=== PATIENT | male | born 1970 | race Caucasian/White ===

== ENCOUNTER 2017-08-13 14:30 | Emergency (ER) | payer BC ==
[~2017-08-13] VITALS: Ht 185.4 cm; Wt 101.7 kg
[~2017-08-13 14:30] MED LIST: IBUP-103 PO; MELOXICAM PO; RXC5 PO
[2017-08-13 14:35] VITALS: TEMP 36.9; Ht 185.4 cm; Wt 101.7 kg
--- NOTE | 2017-08-13 14:58 | EMERGENCY ROOM VISIT NOTE ---
History Report prepared by Elizabet: Anival Gurrola Under the Supervision of: Dr. Jose Cabrera M.D. First contact with patient: 14:38 Chief Complaint: URINARY SYMPTOMS Stated Complaint: URINATING BLOOD Nursing Triage Summary: triage note: pt reports "i am urinating blood i just noticed it about an hour ago." pt denies any pain. History of Present Illness The patient is a 46 year old male who presents to the Emergency Room with complaints of intermittent hematuria that began an hour ago. The patient states that he went to the bathroom after eating lunch and noticed that his urine was a rust color, which cause him to report to the ED. He reports that the his urine is typically clear and has never been this color in the past. The patient states that when he was a child he had a history of urethral valve issues, which he reports that he had surgery for. He states that following the surgery he has not had any issues. The patient states that he had a tooth extracted 10 days ago and was given Tylenol 3, which he finished five days ago, and Amoxicillin, which he finished yesterday. He reports that he has also been taking Advil for his tooth extraction, which he reports he takes 2 every 4-6 hours. The patient reports that he has been eating and drinking fine. He denies previous similar symptoms, taking blood thinners, abdominal pain, and a history of kidney stones. Source of History: patient Onset: an hour ago Position: other (global) Quality: other (rust colored) Timing: intermittent Associated Symptoms: + urinary symptoms, No abdominal pain Review of Systems See HPI for pertinent positives and negatives. A total of ten systems were reviewed and were otherwise negative. Past Medical & Surgical Medical Problems: (1) Osteoarthritis of left shoulder Surgical Problems: (1) H/O elbow surgery (2) H/O shoulder surgery Family History Hypertension Social History Smoking Status: Never Smoker Smokeless Tobacco Use: No Alcohol Use: occasionally Drug Use: none Marital Status: Housing Status: lives with family Occupation Status: employed Current/Historical Medications Scheduled PRN Ibuprofen Tab (Advil), 400 MG PO UD PRN for Pain or Fever Allergies Coded Allergies: No Known Allergies (Unverified , 02/13/16) Physical Exam Vital Signs Date Time Temp Pulse Resp B/P (MAP) Pulse Ox O2 Delivery O2 Flow Rate FiO2 08/13/17 17:29 68 18 139/95 100 Room Air 12/16/17 16:47 74 142/94 97 Room Air 08/13/17 14:35 36.9 88 18 172/120 97 Room Air Physical Exam GENERAL: Awake, alert, well-appearing, in no distress HENT: Normocephalic, atraumatic. Oropharynx unremarkable. EYES: Normal conjunctiva. Sclera non-icteric. NECK: Supple. No nuchal rigidity. FROM. No JVD. RESPIRATORY: Clear to auscultation. CARDIAC: Regular rate, normal rhythm. Extremities warm and well perfused. Pulses equal. ABDOMEN: Soft, non-distended. No tenderness to palpation. No rebound or guarding. No masses. RECTAL: Deferred. MUSCULOSKELETAL: Chest examination reveals no tenderness. The back is symmetrical on inspection without obvious abnormality. There is no CVA tenderness to palpation. No joint edema. LOWER EXTREMITIES: Calves are equal size bilaterally and non-tender. No edema. No discoloration. NEURO: Normal sensorium. No sensory or motor deficits noted. SKIN: No rash or jaundice noted. Medical Decision & Procedures ER Provider Diagnostic Interpretation: Radiology results as stated below per my review and radiologist interpretation ABDOMEN AND PELVIS CT WITH IV CONTRAST CT DOSE: 755.04 mGy.cm HISTORY: hematuria TECHNIQUE: Multiaxial CT images of the abdomen and pelvis were performed following the use of intravenous contrast. A dose lowering technique was utilized adhering to the principles of ALARA. COMPARISON STUDY: None. FINDINGS: The lung bases are essentially clear. No pneumoperitoneum. No pneumatosis. No fractures within the visualized osseous structures. The liver, spleen, adrenal glands, pancreas, and gallbladder are unremarkable. No retroperitoneal lymphadenopathy. No bowel wall thickening or obstruction. Normal appendix. Mild bladder wall thickening. There are 2 stones seen within the lower pole the right kidney with the largest measuring 8 mm. Multiple stones within the left kidney with the largest measuring 7 mm. Focal cortical scarring within the kidneys. There is mild bilateral hydronephrosis. There is also dilatation of the mid to distal ureters. This is most pronounced on the left where the distal left ureter measures up to 2.3 cm in diameter. There is a punctate calcification within the distended distal left ureter on image 431. This appears to be nonobstructing. There may be a small diverticulum within the distal left ureter measuring 8 mm. This is best seen on image 426. Prostate gland measures 3.4 cm. No right ureteral calculi. IMPRESSION: 1. Mild bilateral hydronephrosis with moderate to severe dilatation of the mid to distal bilateral ureters as described above. The ureters are distended to the level of the ureterovesical junctions. There is a 2 mm nonobstructing stone within the distal left ureter. No obstructing right ureteral calculi. Therefore, the hydronephrosis is not clearly explained on this study and could be a result of bilateral megaureters. Chronic bladder outlet obstruction could result in this appearance but is considered less likely. However, the bladder is not significantly distended and the prostate is normal in size. Follow-up nonemergent urology consultation is recommended. 2. Mild bladder wall thickening which is nonspecific. 3. Bilateral nephrolithiasis. 4. No bowel wall thickening or obstruction. 5. Possible small diverticulum within the distal left ureter. Electronically signed by: José Miguel Ramon M.D. 08/13/2017 4:53 PM Dictated Date/Time: 08/13/2017 4:41 PM Laboratory Results 08/13/17 15:15 Red Blood Count 5.64, Mean Corpuscular Volume 84.2, Mean Corpuscular Hemoglobin 28.2, Mean Corpuscular Hemoglobin Concent 33.5, Mean Platelet Volume 10.7, Neutrophils (%) (Auto) 73.7, Lymphocytes (%) (Auto) 16.2, Monocytes (%) (Auto) 9.0, Eosinophils (%) (Auto) 0.7, Basophils (%) (Auto) 0.2, Neutrophils # (Auto) 6.05, Lymphocytes # (Auto) 1.33, Monocytes # (Auto) 0.74, Eosinophils # (Auto) 0.06, Basophils # (Auto) 0.02 08/13/17 15:15 Test 08/13/17 15:05 08/13/17 15:15 Urine Color ORANGE Urine Appearance CLOUDY (CLEAR) Urine pH 6.0 (4.5-7.5) Urine Specific [place] 1.018 (1.000-1.030) Urine Protein TRACE (NEG) Urine Glucose (UA) NEG (NEG) Urine Ketones NEG (NEG) Urine Occult Blood 3+ (NEG) Urine Nitrite NEG (NEG) Urine Bilirubin NEG (NEG) Urine Urobilinogen NEG (NEG) Urine Leukocyte Esterase SMALL (NEG) Urine WBC (Auto) 1-5 /hpf (0-5) Urine RBC (Auto) >30 /hpf (0-4) Urine Hyaline Casts (Auto) 1-5 /lpf (0-5) Urine Epithelial Cells (Auto) 5-10 /lpf (0-5) Urine Bacteria (Auto) NEG (NEG) White Blood Count 8.22 K/uL (4.8-10.8) Red Blood Count 5.64 M/uL (4.7-6.1) Hemoglobin 15.9 g/dL (14.0-18.0) Hematocrit 47.5 % (42-52) Mean Corpuscular Volume 84.2 fL (80-100) Mean Corpuscular Hemoglobin 28.2 pg (25-34) Mean Corpuscular Hemoglobin Concent 33.5 g/dl (32-36) Platelet Count 219 K/uL (130-400) Mean Platelet Volume 10.7 fL (7.4-10.4) Neutrophils (%) (Auto) 73.7 % Lymphocytes (%) (Auto) 16.2 % Monocytes (%) (Auto) 9.0 % Eosinophils (%) (Auto) 0.7 % Basophils (%) (Auto) 0.2 % Neutrophils # (Auto) 6.05 K/uL (1.4-6.5) Lymphocytes # (Auto) 1.33 K/uL (1.2-3.4) Monocytes # (Auto) 0.74 K/uL (0.11-0.59) Eosinophils # (Auto) 0.06 K/uL (0-0.5) Basophils # (Auto) 0.02 K/uL (0-0.2) RDW Standard Deviation 41.4 fL (36.4-46.3) RDW Coefficient of Variation 13.5 % (11.5-14.5) Immature Granulocyte % (Auto) 0.2 % Immature Granulocyte # (Auto) 0.02 K/uL (0.00-0.02) Anion Gap 4.0 mmol/L (3-11) Est Creatinine Clear Calc Drug Dose 114.5 ml/min Estimated GFR () 102.9 Estimated GFR (Non- 88.8 BUN/Creatinine Ratio 10.9 (10-20) Calcium Level 9.3 mg/dl (8.5-10.1) Total Bilirubin 0.5 mg/dl (0.2-1) Direct Bilirubin 0.1 mg/dl (0-0.2) Aspartate Amino Transf (AST/SGOT) 19 U/L (15-37) Alanine Aminotransferase (ALT/SGPT) 33 U/L (12-78) Alkaline Phosphatase 73 U/L (45-117) Total Protein 7.6 gm/dl (6.4-8.2) Albumin 4.5 gm/dl (3.4-5.0) Lipase 167 U/L (73-393) Laboratory results reviewed by me Medications Administered Medications (Trade) Dose Ordered Sig/Álvaro Route Start Time Stop Time Status Last Admin Dose Admin Sodium Chloride 1,000 ml @ 999 mls/hr Q1H1M STAT IV 08/13/17 16:40 08/13/17 17:40 DC 08/13/17 17:00 999 MLS/HR ED Course 1450: The patient was evaluated in room B08. A complete history and physical exam was performed. 1548: I reevaluated the patient and he is resting comfortably. 1707: I reevaluated the patient. Discussed results and discharge instructions: He verbalized understanding and agreement. The patient is ready for discharge. Medical Decision I reviewed the patient's past medical history, medications, and the nursing notes as described above. The patient's presentation and history were concerning for Dehydration, electrolyte abnormality, renal failure, UTI, pyelonephritis, urinary stone. The patient is a 46-year-old gentleman who presents emergency Department with hematuria that started today per history of present illness. Arrival the patient is well-appearing, in no acute distress, afebrile with stable vital signs. UA demonstrates gross hematuria. Labs unremarkable otherwise with WBC and creatinine within normal limits. CT scan demonstrates a 2 mm nonobstructing left ureteral stone. Of note the patient was found to have bilateral hydro-nephrosis, given the patients history of childhood urethral stenosis may be residual findings from that. Denies any urinary retention currently therefore this finding is likely incidental. The patient follow-up with his PCP for possible urology referral. Findings and plan for follow-up reviewed with patient. Patient agreeable and d/c'd per discharge instructions. Medication Reconcilliation Current Medication List: was personally reviewed by me Blood Pressure Screening Patient's blood pressure: Elevated blood pressure Blood pressure disposition: Referred to PCP Impression Primary Impression: Ureteral stone Additional Impressions: Hematuria Bilateral hydronephrosis Scribe Attestation The scribe's documentation has been prepared under my direction and personally reviewed by me in its entirety. I confirm that the note above accurately reflects all work, treatment, procedures, and medical decision making performed by me. Departure Information Dispostion Home / Self-Care Referrals Roly Barry D.O. (PCP) Forms HOME CARE DOCUMENTATION FORM, IMPORTANT VISIT INFORMATION Patient Instructions ED Hematuria, ED Stone Kidney Undescended No Sx, My [facility] Additional Instructions Please follow up with your primary care physician in the next week for re- evaluation and possible urology referral for your CT scan findings. You were found to have a non-obstructing ureteral stone. You were also found to have bilateral hydronephrosis, which may be due to your prior history of childhood urethral abnormalities. Otherwise, your exam, CT scan, and lab results did not show signs of an emergent condition at this time. Return to the emergency department for worsening symptoms as described in the accompanying instructions. ABDOMEN AND PELVIS CT WITH IV CONTRAST CT DOSE: 755.04 mGy.cm HISTORY: hematuria TECHNIQUE: Multiaxial CT images of the abdomen and pelvis were performed following the use of intravenous contrast. A dose lowering technique was utilized adhering to the principles of ALARA. COMPARISON STUDY: None. FINDINGS: The lung bases are essentially clear. No pneumoperitoneum. No pneumatosis. No fractures within the visualized osseous structures. The liver, spleen, adrenal glands, pancreas, and gallbladder are unremarkable. No retroperitoneal lymphadenopathy. No bowel wall thickening or obstruction. Normal appendix. Mild bladder wall thickening. There are 2 stones seen within the lower pole the right kidney with the largest measuring 8 mm. Multiple stones within the left kidney with the largest measuring 7 mm. Focal cortical scarring within the kidneys. There is mild bilateral hydronephrosis. There is also dilatation of the mid to distal ureters. This is most pronounced on the left where the distal left ureter measures up to 2.3 cm in diameter. There is a punctate calcification within the distended distal left ureter on image 431. This appears to be nonobstructing. There may be a small diverticulum within the distal left ureter measuring 8 mm. This is best seen on image 426. Prostate gland measures 3.4 cm. No right ureteral calculi. IMPRESSION: 1. Mild bilateral hydronephrosis with moderate to severe dilatation of the mid to distal bilateral ureters as described above. The ureters are distended to the level of the ureterovesical junctions. There is a 2 mm nonobstructing stone within the distal left ureter. No obstructing right ureteral calculi. Therefore, the hydronephrosis is not clearly explained on this study and could be a result of bilateral megaureters. Chronic bladder outlet obstruction could result in this appearance but is considered less likely. However, the bladder is not significantly distended and the prostate is normal in size. Follow-up nonemergent urology consultation is recommended. 2. Mild bladder wall thickening which is nonspecific. 3. Bilateral nephrolithiasis. 4. No bowel wall thickening or obstruction. 5. Possible small diverticulum within the distal left ureter. Problem Qualifiers
[2017-08-13 15:30] LABS: URINE APPEARANCE CLOUDY (CLEAR); URINE BILIRUBIN NEG (NEG); URINE COLOR ORANGE; URINE NITRITE NEG (NEG); URINE SPECIFIC GRAVITY 1.018 (1.000-1.030); UROBILINOGEN NEG (NEG); ZZUR CULT IF INDIC CLEAN CATCH NO
[2017-08-13 15:31] LABS: BASO % 0.2 %; BASO ABS # 0.02 K/uL (0-0.2); COMPLETE YES; EOS % 0.7 %; HEMATOCRIT 47.5 % (42-52); IG% 0.2 %; LYMPH % 16.2 %; LYMPH ABS # 1.33 K/uL (1.2-3.4); MEAN CELL VOLUME 84.2 fL (80-100); MEAN CORPUSCULAR HEMOGLOBIN 28.2 pg (25-34); MEAN CORPUSCULAR HGB CONC 33.5 g/dl (32-36); MEAN PLATELET VOLUME 10.7 fL (7.4-10.4); NEUT % 73.7 %; PLATELET COUNT 219 K/uL (130-400); RED BLOOD COUNT 5.64 M/uL (4.7-6.1); WHITE BLOOD COUNT 8.22 K/uL (4.8-10.8)
[2017-08-13 15:35] LABS: MANUAL MICROSCOPIC REQUIRED? NO; REVIEW REQ? NO
[2017-08-13 15:47] LABS: BUN/CREATININE RATIO 10.9 (10-20); CALCIUM 9.3 mg/dl (8.5-10.1); CREATININE 1.01 mg/dl (0.60-1.40); POTASSIUM 3.8 mmol/L (3.5-5.1)
[2017-08-13] MEDS ORDERED: OPTIRAY 320 IV PRN (16:15)
[2017-08-13] MEDS ORDERED: SODIUM CHLORIDE 0.9% 1000ML 1,000 ML IV STA (16:40)
--- NOTE | 2017-08-13 16:54 | DIAGNOSTIC IMAGING REPORT ---
ABDOMEN AND PELVIS CT WITH IV CONTRAST CT DOSE: 755.04 mGy.cm HISTORY: hematuria TECHNIQUE: Multiaxial CT images of the abdomen and pelvis were performed following the use of intravenous contrast. A dose lowering technique was utilized adhering to the principles of ALARA. COMPARISON STUDY: None. FINDINGS: The lung bases are essentially clear. No pneumoperitoneum. No pneumatosis. No fractures within the visualized osseous structures. The liver, spleen, adrenal glands, pancreas, and gallbladder are unremarkable. No retroperitoneal lymphadenopathy. No bowel wall thickening or obstruction. Normal appendix. Mild bladder wall thickening. There are 2 stones seen within the lower pole the right kidney with the largest measuring 8 mm. Multiple stones within the left kidney with the largest measuring 7 mm. Focal cortical scarring within the kidneys. There is mild bilateral hydronephrosis. There is also dilatation of the mid to distal ureters. This is most pronounced on the left where the distal left ureter measures up to 2.3 cm in diameter. There is a punctate calcification within the distended distal left ureter on image 431. This appears to be nonobstructing. There may be a small diverticulum within the distal left ureter measuring 8 mm. This is best seen on image 426. Prostate gland measures 3.4 cm. No right ureteral calculi. IMPRESSION: 1. Mild bilateral hydronephrosis with moderate to severe dilatation of the mid to distal bilateral ureters as described above. The ureters are distended to the level of the ureterovesical junctions. There is a 2 mm nonobstructing stone within the distal left ureter. No obstructing right ureteral calculi. Therefore, the hydronephrosis is not clearly explained on this study and could be a result of bilateral megaureters. Chronic bladder outlet obstruction could result in this appearance but is considered less likely. However, the bladder is not significantly distended and the prostate is normal in size. Follow-up nonemergent urology consultation is recommended. 2. Mild bladder wall thickening which is nonspecific. 3. Bilateral nephrolithiasis. 4. No bowel wall thickening or obstruction. 5. Possible small diverticulum within the distal left ureter. Electronically signed by: José Miguel Ramon M.D. 08/13/2017 4:53 PM Dictated Date/Time: 08/13/2017 4:41 PM
[2017-08-13 17:29] VITALS: BP 139/95; PULSE 68; O2SAT 100
== END 2017-08-13 17:46 | disposition home or self-care (01) ==
LOC: C.EDB 14:31
DX: N13.1 Hydronephrosis with ureteral stricture, not elsewhere classified (principal); R31.9 Hematuria, unspecified; Z98.818 Other dental procedure status; Z98.890 Other specified postprocedural states; Z82.49 Family history of ischemic heart disease and other diseases of the circulatory system

== ENCOUNTER 2024-09-28 08:04 | Observation (INO) ==
--- NOTE | 2024-08-23 13:38 | PAT Medication Instructions ---
Medication Instructions Date of Service August 23, 2024 Home Medications celecoxib 100 mg capsule (Celebrex) 100 mg PO QDL cyanocobalamin (vitamin B-12) 500 mcg tablet (Vitamin B-12) 500 mcg PO QDL [id number] C-Mn 500 mg-400 mg capsule 1 cap PO QDL hydrochlorothiazide 25 mg tablet 25 mg PO QDL lisinopril 10 mg tablet 10 mg PO QDL magnesium oxide 800 mg PO QDL rosuvastatin 10 mg tablet 10 mg PO QDL turmeric root extract 500 mg capsule 2,000 mg PO QDL ASK your surgeon for instructions celecoxib 100 mg capsule (Celebrex) 100 mg PO QDL STOP taking 2 weeks before surgery (or as soon as possible if surgery is within 2 weeks) [id number] C-Mn 500 mg-400 mg capsule 1 cap PO QDL turmeric root extract 500 mg capsule 2,000 mg PO QDL DO NOT take the morning of surgery cyanocobalamin (vitamin B-12) 500 mcg tablet (Vitamin B-12) 500 mcg PO QDL hydrochlorothiazide 25 mg tablet 25 mg PO QDL lisinopril 10 mg tablet 10 mg PO QDL magnesium oxide 800 mg PO QDL Take morning of surgery With a small sip of water, OTHERWISE NOTHING TO EAT OR DRINK AFTER MIDNIGHT: rosuvastatin 10 mg tablet 10 mg PO QDL Other Notes If you have any questions please call us at [phone] or [phone] or [phone] or [phone]
--- NOTE | 2024-09-04 11:15 | Anesthesiology Consultation ---
Date of Service September 04, 2024 Assessment & Plan (1) Encounter for pre-operative examination: Infectious disease screening: Per assessment on 09/04/24- No known recent infectious disease contacts or current infectious disease symptoms. Chart Review Chart Review: Acceptable Risk for Surgery and Patient seen in Pre Admission Testing Teaching & Discussion Pre-Anesthesia Teaching/Discussion Notes: Instructed NPO after midnight before surgery,except medications with 15 cc of water. Medication instructions provided according to the PAT guidelines. History Surgery Operation Date: 09/28/24 08:00 Proposed Procedures p Revision Left Shoulder Hemiarthroplasty to Left Anatomic Total Shoulder Arthroplasty versus Left Reverse Total Shoulder Arthroplasty - Harlan Rubio, DO Height/Weight Height: 6 ft 1 in Weight: 115 kg Allergies Allergy/AdvReac Type Severity Reaction Status Date / Time atorvastatin AdvReac Severe Muscle/joint Verified 08/30/24 11:56 pain Medications Home Medications Medication Instructions Recorded Confirmed Last Taken celecoxib 100 mg capsule (Celebrex) 100 mg PO QDL 08/20/24 08/20/24 Unknown cyanocobalamin (vitamin B-12) 500 500 mcg PO QDL 08/20/24 08/20/24 Unknown mcg tablet (Vitamin B-12) [id number] C-Mn 500 1 cap PO QDL 08/20/24 08/20/24 Unknown mg-400 mg capsule hydrochlorothiazide 25 mg tablet 25 mg PO QDL 08/20/24 08/20/24 Unknown lisinopril 10 mg tablet 10 mg PO QDL 08/20/24 08/20/24 Unknown magnesium oxide 800 mg PO QDL 08/20/24 08/20/24 Unknown rosuvastatin 10 mg tablet 10 mg PO QDL 08/20/24 08/20/24 Unknown turmeric root extract 500 mg 2,000 mg PO QDL 08/20/24 08/20/24 Unknown capsule Past Medical History Medical History History of kidney stones Passed on his own - no surgical intervention Hx of sciatica Hyperlipidemia Hypertension Osteoarthritis Exercise / Class Metabolic Activity II 4-5 Yardwork/Stairs/Walk up hill (one FS: No CP, no SOB) Past Family History Family History Other No family history of adverse response to anesthesia Past Surgical History Surgical History History of colonoscopy Hx of elbow surgery R/L "tennis elbow repair" S/P carpal tunnel release right wrist S/P right knee arthroscopy Status post left shoulder hemiarthroplasty Past Anesthesia History No Hx of Anesthesia Complications and No Family Hx of Anesthesia Complications History of PONV No Hx of PONV and No Hx of Motion Sickness Social History Smoking Status: Never smoker Do You Dip or Chew Tobacco: No Hx Alcohol Use: Yes Alcohol type: wine and hard liquor alcohol intake frequency: a few times a week Hx Substance Use: No substance use type: does not use Review of Systems Patient denies chest pain, shortness of breath, dyspnea on exertion, fever, chills, cough, wheezing, palpitations. Physical Exam Vital Signs BP 114/76 P 76 TEMP 98.0 SP02 95%RA RESP 16 Physical Full cervical extension range of motion. Full TMJ range of motion. TMD > 3.5 finger breaths Mallampati Score II Dentition: missing molars, + implant (molar), + cap (molar) Lungs: clear throughout to auscultation Cardiac: regular rate and rhythm, no murmurs noted Spine: normal Carotid arteries: negative bruit Extremities: no LE edema Lab Results Anesthesia Preop Results Results Anesthesia Widget: WBC 6.21 K/ul (4.8-10.8) 09/04/24 Hgb 16.4 g/dl (14.0-18.0) 09/04/24 Hct 48.5 % (42.0-52.0) 09/04/24 Plt 211 K/uL (130-400) 09/04/24 Na 136 mmol/L (136-145) 09/04/24 K 4.2 mmol/L (3.5-5.1) 09/04/24 Cl 99 mmol/L (98-107) 09/04/24 CO2 31 mmol/L (21-32) 09/04/24 BUN 17 mg/dl (6-23) 09/04/24 Creat 1.10 mg/dl (0.6-1.4) 09/04/24 Glucose Level 98 mg/dl (70-99(Fasting)) 09/04/24 PT 10.5 Seconds (9.0-12.0) 09/04/24 PTT 28 Seconds (21-31) 09/04/24 INR 1.0 (0.9-1.1) 09/04/24 Blood Type O Positive 09/04/24 Antibody Screen NEGATIVE 09/04/24 Testing Electrocardiogram Date: 09/04/24 Findings: + NSR @ (68) Chest X-Ray Date: 09/04/24 FINDINGS: Heart size and pulmonary vasculature are normal. No effusion or consolidation. IMPRESSION: No acute findings.
[~2024-09-28 08:04] MED LIST changes: +BUPIVACAINE 0.5 % 5 MG/1 ML PF 10ML VIAL ONE; -IBUP-103 PO; -MELOXICAM PO; -RXC5 PO
[2024-09-28] MEDS ORDERED: fentaNYL citrate PF 100 MCG/2 ML VIAL ONE (08:27)
[2024-09-28] MEDS ORDERED: MIDAZOLAM HCL 1 MG/ML 2ML VIAL ONE (08:27)
[2024-09-28] MEDS ORDERED: PROPOFOL IV EMULSION 10 MG/ML 20 ML VIAL IV ONE (08:29)
[2024-09-28] MEDS ORDERED: ROCURONIUM BROMIDE 10 MG/ML 5 ML VIAL IV ONE (08:29)
[2024-09-28] MEDS ORDERED: ONDANSETRON INJ 2 MG/ML 2 ML VIAL ONE (08:29)
[2024-09-28] MEDS ORDERED: ATROPINE SULFATE 0.1 MG/ML 10ML SYR IV PRN (08:57)
[2024-09-28] MEDS ORDERED: ePHEDrine sulfate 50 MG/ML AMP IV PRN (08:57)
[2024-09-28] MEDS ORDERED: HYDROmorphone INJ 1 MG/ML SYRINGE IV PRN (08:57)
[2024-09-28] MEDS: LR 15ML/HR IV SCH (09:12)
[2024-09-28] MEDS: ACETAMINOPHEN 500 MG TAB PO SCH ×2 (09:12→14:51)
[2024-09-28] MEDS: FAMOTIDINE 20 MG TAB PO SCH (09:13)
[2024-09-28] MEDS: GABAPENTIN 900 MG DOSE PO SCH (09:13)
[2024-09-28] MEDS: LR 60ML/HR IV SCH (09:13)
[2024-09-28] MEDS: dexAMETHasone**PF** 10 MG/ML VIAL IV SCH (09:13)
[2024-09-28] MEDS: TRANEXAMIC ACID 1,000 MG **IV Pre-op IV SCH (09:44)
--- NOTE | 2024-09-28 10:00 | History & Physical Bridge Note ---
Date of Service September 28, 2024 History & Physical Bridge Note I have examined the patient, reviewed the History & Physical and in the interval since the performance of the History & Physical I have noted the following changes of clinical significance: no changes noted
[2024-09-28] MEDS: ceFAZolin 2000MG 2,000 MG/15 ML SYR IV SCH (10:03)
[2024-09-28] MEDS: ROPIV 0.5% 246mg, Ketorolac 30mg, EPINEPHrine 0.5mg in NSS INFIL SCH (10:53)
[2024-09-28] MEDS: ORTHO JOINT ANESTHETIC ONE (10:54)
[2024-09-28] MEDS ORDERED: SUGAMMADEX SODIUM 200 MG/2 ML VIAL IV ONE (11:08)
[2024-09-28] MEDS: TRANEXAMIC ACID 1,000 MG **IV Intra-op IV SCH (11:42)
[2024-09-28] MEDS: fentaNYL citrate PF 100 MCG/2 ML VIAL IV PRN (12:24)
[2024-09-28] MEDS: ONDANSETRON INJ 2 MG/ML 2 ML VIAL IV PRN (12:25)
[2024-09-28] MEDS: PROMETHAZINE HCL 6.25 MG in SODIUM CHLORIDE 0.9% 50 ML IV PRN (12:52)
--- NOTE | 2024-09-28 13:07 | Operative Report ---
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 He was seen in the preoperative holding area and the operative extremity identified and signed. He was given a preoperative antibiotic and a left interscalene nerve block. He was taken back the operating room and laid on table in supine position. He was put under general anesthesia. He was put into the beachchair position. The left shoulder was prepped and draped sterile fashion. A timeout was done. The patient and the operative extremity was properly identified. The previous deltopectoral incision was opened back up. Dissection was taken down through the fascia. The deltoid was retracted laterally and the conjoin tendon and was retracted medially. The subscapularis was identified and intact. The subscapularis was then released off the lesser tuberosity. The humerus was then exposed. The humeral head was then removed. The rotator cuff was intact. The stem appeared to be in good alignment. At this point I decided to converted to a total shoulder arthroplasty. The glenoid was exposed. Time was spent doing a circumferential capsular labral release around the glenoid. A size 4 sizing guide was then placed on the glenoid. A guidepin was placed in the middle of the glenoid vault. The glenoid was then reamed. A central boss was then drilled followed by 3 peripheral peg holes. A size 4 glenoid was then cemented into place. Once cement had hardened, the proximal humerus was exposed. A size 46 x 18 eccentric humeral head was impacted into place. The shoulder was reduced. The shoulder was brought through full range of motion and felt to be stable. The surrounding soft tissues were injected with the 100 cc of an orthopedic pain control cocktail. The subscapularis was then tenodesed back to the lesser tuberosity with Arthrex suture anchors. I was able to get a speed bridge repair. The rotator interval was then closed with a fiber tape. The shoulder was brought through full range of motion and felt to be stable. The axillary nerve was palpated. The deltopectoral interval was then closed with 2-0 Vicryl suture. Skin was closed with 3-0 Vicryl and marv. He was then placed in a Silverlon dressing. He was then extubated and transferred to a hospital bed. He was taken to the postanesthesia care unit in stable condition. He tolerated the procedure well. Gray Begum PA-C, was present for the entire procedure. He was critical for patient positioning, prepping, draping, retraction exposure, wound closure and application of sterile dressing. I attest to the content of the Intraoperative Record and any orders documented therein. Any exceptions are noted below.
[2024-09-28] MEDS ORDERED: HYDROmorphone INJ 0.5 MG/0.5 ML SYR IV PRN (13:08)
[2024-09-28] MEDS ORDERED: NALOXONE HCL 0.4 MG/1 ML VIAL/CARP IV PRN (13:08)
[2024-09-28] MEDS ORDERED: MAGNESIUM HYDROXIDE SUSP 30 ML UDC PO PRN (13:08)
[2024-09-28] MEDS ORDERED: bisacodyL 10 MG SUPP PR PRN (13:08)
[2024-09-28] MEDS ORDERED: ONDANSETRON INJ 2 MG/ML 2 ML VIAL IV PRN (13:08)
[2024-09-28] MEDS ORDERED: METOCLOPRAMIDE HCL INJ 5 MG/ML 2 ML VIAL IV PRN (13:08)
--- NOTE | 2024-09-28 13:21 | XRay Report ---
XR shoulder LT min 2V routine CLINICAL HISTORY: Post shoulder surgery COMPARISON: None FINDINGS: 2 views of left shoulder demonstrate satisfactory positioning and alignment of the arthrop lasty components. There is discoid atelectasis in the left lung base. IMPRESSION: As above ACT 112: Negative or not required by law. Electronically signed by: Ema Rodarte M.D. 09/28/2024 1:19 PM
[2024-09-28] MEDS: BUPIVACAINE LIPOSOME 1.3% 133 MG/10 ML VIAL ONE (14:22)
[2024-09-28] MEDS: PROMETHAZINE HCL INJ 25 MG/ML 1 ML VIAL ONE (14:23)
[2024-09-28] MEDS: SODIUM CHLORIDE 0.9% 50 ML BAG ONE (14:23)
--- NOTE | 2024-09-28 14:39 | Anesthesiology Progress Note ---
Date of Service September 28, 2024 Anesthesia Post Procedure Vital Signs Vital Signs: Temp Pulse Pulse Resp BP Pulse Ox O2 Del Method 09/28/24 14:00 36.7 C 86 20 125/81 93 Nasal Cannula 09/28/24 13:38 36.8 C 83 20 124/72 94 Nasal Cannula 09/28/24 13:30 79 19 125/77 94 Nasal Cannula 09/28/24 13:20 82 18 118/75 93 Nasal Cannula 09/28/24 13:10 78 18 129/86 94 Nasal Cannula 09/28/24 13:00 36.5 C 70 20 127/80 94 Nasal Cannula 09/28/24 12:50 73 22 126/82 95 Nasal Cannula 09/28/24 12:40 72 18 127/82 95 Nasal Cannula 09/28/24 12:30 78 22 135/85 95 Nasal Cannula 09/28/24 12:20 77 18 147/95 H 94 Nasal Cannula 09/28/24 12:10 35.5 C L 77 20 148/89 H 92 Room Air 09/28/24 08:45 36.6 C 81 20 150/96 H 96 Room Air O2 Flow Rate 09/28/24 14:00 2 09/28/24 13:38 2 09/28/24 13:30 3 09/28/24 13:20 3 09/28/24 13:10 3 09/28/24 13:00 4 09/28/24 12:50 4 09/28/24 12:40 4 09/28/24 12:30 4 09/28/24 12:20 4 09/28/24 12:10 09/28/24 08:45 Pain Intensity Left Shoulder: Pain Intensity: 3 Transfer of Care Handoff Completed per policy Notes Mental Status: alert / awake / arousable and participated in evaluation Patient Amnestic to Procedure: Yes Nausea / Vomiting: adequately controlled Pain: adequately controlled Airway Patency, RR, SpO2: stable & adequate BP & HR: stable & adequate Hydration State: stable & adequate Anesthetic Complications: no major complications apparent and Pt Satisfied with anesthetic care
[2024-09-28] MEDS: KETOROLAC TROMETHAMINE 15 MG/ML VIAL IV SCH (14:52)
[2024-09-28] MEDS: ceFAZolin 1000MG 1,000 MG/7.5 ML SYR IV SCH (20:13)
[2024-09-28] MEDS: SENNA 8.6 MG TAB PO SCH (20:13)
[2024-09-28] MEDS: DOCUSATE SODIUM 100 MG CAP PO SCH (20:13)
--- NOTE | 2024-09-29 07:28 | Orthopedic Progress Note ---
Date of Service September 29, 2024 Assessment & Plan (1) Status post replacement of left shoulder joint: Overall he is doing very well. He is not having much pain in the left shoulder. He will be seen by physical therapy today for ambulation and range of motion exercises. He is to be in the sling for 6 weeks. He can be discharged to home later today. He will follow-up with orthopedics in 2 weeks. Katelyn Saravia was seen and examined on bedside this morning. Overall is doing very well. He is not having much pain in the left shoulder. He has been up and ambulating to the bathroom. Has no complaints.. Review of Systems All systems reviewed & are unremarkable except as noted in HPI & below. Physical Exam On physical examination of the left shoulder, the dressing is clean and dry. He has active motion of his hand and his wrist. He is wearing his sling as instructed.. Results & Data Results & Data Laboratory Results . Diagnostic Findings Postoperative x-rays of the left shoulder show the prosthesis to be in anatomic alignment without any evidence of fracture complication, or loosening.. PG Care Time/CCT Total # of Minutes Spent Total Time Spent with Patient: Total time spent is greater than 50% in coordination of care (as documented) at patient's floor/unit and/or counseling patient: Coding Level of Care Code 77666 Post Operative Follow-Up Diagnoses Status post replacement of left shoulder joint Z96.612
--- NOTE | 2024-09-29 07:29 | Discharge Summary ---
Date of Service September 29, 2024 Principal Diagnosis Same as "Discharge Diagnosis" noted below under Discharge Instructions. Discharge Exam On physical examination of the left shoulder, the dressing is clean and dry. He has active motion of his hand and his wrist. He is wearing his sling as instructed.. Discharge Data Procedures Performed Operation Date: 09/28/24 10:00 Actual Procedures p Left Shoulder Hemiarthroplasty Revison to Left Anatomic Total Shoulder Arthroplasty, Cemented(Left) - Harlan Rubio DO Ordered Studies 09/28/24 05:00 US - OR guided needle placemen Routine Hospital Course (1) Status post replacement of left shoulder joint: On September 28, 2024 Manjit arrived at [facility] and underwent a left revision shoulder replacement without complication. He had a general anesthetic and a left interscalene nerve block. Postoperatively, he was placed in a sling and transferred to the general orthopedic floors. His hospital course was uneventful. On postop day #1, his vital signs were stable and his pain was well-controlled. He was able to participate well with physical therapy doing ambulation and range of motion exercises. He was then discharged to home. He will follow with orthopedics in 2 weeks. PG Care Time/CCT Total # of Minutes Spent Total Time Spent with Patient: Total time spent is greater than 50% in coordination of care (as documented) at patient's floor/unit and/or counseling patient: Discharge Plan Discharge Items Patient Disposition: Home - Self-Care Reason For Visit: Painful Left Shoulder Hemiarthroplasty Discharge Diagnosis: Left shoulder replacement Activity: Per Instructions section Non-emergency contact: Surgeon Call non-emergency contact if: your wound has increased redness and your wound has increased drainage Follow-up/Referrals: Carmen Enrique PA-C [Primary Care Provider] - Diet: Regular Addtl Attending Provider Instructions: Activity and Therapy Recommendations: * Wear your sling for 6 weeks, unless otherwise instructed. You may remove your sling to shower and to dress, but otherwise, you should be in your sling at all times, including while sleeping * The shoulder replacement is very stable and you can use your hand while in the sling * You were shown a series of exercises in the hospital. Do these exercises daily including the exercises you were shown in physical therapy. * Hold off on therapy for 6 weeks to give the rotator cuff time to heal. Medications: * Narcotic You will likely be sent home from the hospital with a prescription for the narcotic pain medication that worked best throughout your stay. * Cefadroxil -take the antibiotic twice a day for 10 days to help prevent infection. * Other medications may be prescribed for specific circumstances. If you have any questions, please call the office at . * Resume previous home medications unless otherwise instructed Dressing Care: Leave the Silverlon dressing in place for 7 days. After 7 days you may remove the dressing. If the incision is not draining then you may leave the marv open to air. If there is a little bit of drainage or if the marv are getting stuck on your clothing then cover the incision with a dry dressing. The marv will be removed at your 2 week follow-up appointment. Showering: You may shower with the Silverlon dressing in place. Do not let the shower spray hit the dressing directly. Pat the Silverlon dressing dry. If the dressing becomes wet underneath, then simply remove the dressing. Keep the incision dry until you are 7 days out from the day of surgery. After 7 days you may remove the Silverlon dressing and shower with the marv exposed. Let soapy water run over the marv and pat them dry. Do not scrub or soak the incision. Diet: You may resume your previous diet. Things To Watch For: * Drainage from the incision site that occurs more than one week after your ayse murtaza. * Increased redness at the incision site. * Fever above 102 degrees Fahrenheit. * Unusual chest pain or shortness of breath. * Call [facility] at with any of the above problems Follow-Up Visit: Follow-up with Dr. Rubio's office 2-3 weeks after your day of surgery. We will remove your marv and answer any questions. If you have any additional questions or concerns, Dr Rubio is usually in the office at the same time and will be available An appointment was probably scheduled when you signed-up for surgery in the office. If you have any questions call More detailed instructions as well as Frequently Asked Questions were provided in a folder by our office when you signed-up for surgery. Please review these instructions when you get home. If you have any further questions or concerns, please feel free to call the office at [phone] Pending Studies at Discharge: No Stand-Alone Forms: My [facility], Smoking Cessation Medications and DC Order Prescriptions: New cefadroxil 500 mg capsule 500 mg PO BID 10 Days Qty: 20 0RF oxycodone 5 mg tablet 5 mg PO Q6H PRN (Reason: pain) Qty: 30 0RF Continued cyanocobalamin (vitamin B-12) [Vitamin B-12] 500 mcg Tablet 500 mcg PO QDL lisinopril 10 mg Tablet 10 mg PO QDL hydrochlorothiazide 25 mg Tablet 25 mg PO QDL celecoxib [Celebrex] 100 mg Capsule 100 mg PO QDL [id number] C-Mn [Glucosamine Complex] 500-400 mg Capsule 1 cap PO QDL rosuvastatin 10 mg Tablet 10 mg PO QDL turmeric root extract 500 mg Capsule 2,000 mg PO QDL magnesium oxide 400 mg magnesium Tablet 800 mg PO QDL Fish Oil Capsule 1,500 mg PO DAILY Discharge Orders: Discharge Order (Routine); Ordered 09/29/24 Ordered By: Harlan Rubio Admission Data Admit Date/Time: 09/28/24 12:13 Attending Provider: Harlan Rubio Admit Provider: Harlan Rubio Primary Care Provider: Carmen Enrique
[2024-09-29] MEDS: oxyCODONE HCL IR 5 MG TAB (IMMEDIATE RELEASE) PO PRN (09:17)
[2024-09-29] MEDS: MULTIVITAMIN TAB PO SCH (09:18)
[2024-09-29] MEDS: hydroCHLOROthiazide 25 MG TAB PO SCH (09:18)
[2024-09-29] MEDS: lisinopril 10 MG TAB PO SCH (09:18)
[2024-09-29] MEDS: ROSUVASTATIN CALCIUM 10 MG TAB PO SCH (09:19)
[2024-09-29] MEDS: dexAMETHasone 4 MG TAB PO SCH (11:11)
== END 2024-09-29 11:52 | disposition home or self-care (01) ==
LOC: 3N 08:04 → ASU 08:04